=== PATIENT | male | born 1975 | race Hispanic/Latino ===

== ENCOUNTER 2018-06-15 10:44 | Emergency (ER) | payer BC ==
[2018-06-15] MEDS ORDERED: Lidocaine 1%/Epinephrine 1:100000 30 ml vial IJ STA (11:05)
[2018-06-15] MEDS ORDERED: TDAP Vaccine 0.5 mL Syr IM ONE (11:05)
[2018-06-15 11:07] VITALS: TEMP 98.6
--- NOTE | 2018-06-15 11:14 | ED PDOC ---
Arrival/HPI <Tucker Rosario - Last Filed: 06/15/18 12:02> - History of Present Illness Time/Duration: Prior to Arrival Symptom Onset: Sudden Context: Work <Tahir Blair - Last Filed: 06/15/18 12:06> - General Chief Complaint: Abnormal Skin Integrity Time Seen by Provider: 06/15/18 11:03 - History of Present Illness Narrative History of Present Illness (Text): 06/15/18 11:11 Patient is a 42 year old male with no PMH who presents to ED with a 1.5 cm superficial laceration on the left side of his chin. 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 (Tahir Blair) Past Medical History - Provider Review Nursing Documentation Reviewed: Yes - Travel History Have you recently traveled outside [place] w/in the past 3 mons?: No - Psychiatric Hx Substance Use: No <Tahir Blair - Last Filed: 06/15/18 12:06> Family/Social History - Physician Review Nursing Documentation Reviewed: Yes Family/Social History: No Known Family HX Smoking Status: Never Smoked Hx Alcohol Use: Yes Frequency of alcohol use: Socially Hx Substance Use: No <Tahir Blair - Last Filed: 06/15/18 12:06> Allergies/Home Meds <Tucker Rosario - Last Filed: 06/15/18 12:02> <Tahir Blair - Last Filed: 06/15/18 12:06> Allergies/Adverse Reactions: Allergies No Known Allergies Allergy (Verified 06/15/18 10:46) Home Medications: Home Meds Medication Instructions Recorded Confirmed No Known Home Med 06/15/18 06/15/18 Review of Systems - Physician Review All systems were reviewed & negative as marked: Yes - Review of Systems Constitutional: absent: Fatigue, Fevers Eyes: absent: Vision Changes ENT: absent: Sore Throat, Rhinorrhea Respiratory: absent: SOB, Cough Cardiovascular: absent: Chest Pain Gastrointestinal: absent: Abdominal Pain, Nausea, Vomiting Genitourinary Male: absent: Dysuria Musculoskeletal: absent: Arthralgias Skin: absent: Rash Neurological: absent: Headache, Dizziness Endocrine: absent: Diaphoresis Hemo/Lymphatic: absent: Adenopathy Psychiatric: absent: Anxiety, Depression <Tahir Blair - Last Filed: 06/15/18 12:06> Physical Exam Vital Signs Reviewed: Yes Temperature: Afebrile Blood Pressure: Hypertensive Pulse: Tachycardic Respiratory Rate: Normal Appearance: Positive for: Non-Toxic, Comfortable Pain Distress: Mild Mental Status: Positive for: Alert and Oriented X 3 - Systems Exam Head: Present: Atraumatic, Normocephalic Pupils: Present: PERRL Extroacular Muscles: Present: EOMI Conjunctiva: Present: Normal Ears: Present: Normal Mouth: Present: Moist Mucous Membranes Neck: Present: Normal Range of Motion. No: JVD Respiratory/Chest: Present: Clear to Auscultation. No: Wheezes, Rales, Rhonchi Cardiovascular: Present: Normal S1, S2, Tachycardic. No: Murmurs, Rub, Gallop Abdomen: No: Tenderness, Rebound, Guarding Upper Extremity: Present: Normal Inspection. No: Cyanosis Lower Extremity: Present: Normal Inspection. No: Edema Neurological: Present: Speech Normal Skin: Present: Warm, Dry, Other (1.5cm superficial laceration on left lower chin ) Psychiatric: Present: Alert, Oriented x 3 <Tahir Blair - Last Filed: 06/15/18 12:06> Vital Signs Temp Pulse Resp BP Pulse Ox 06/15/18 11:59 98.6 F 109 H 20 166/100 H 98 06/15/18 11:14 131 H 20 169/102 H 97 06/15/18 10:44 98.6 F 128 H 18 164/94 H 100 Medical Decision Making <Tucker Rosario - Last Filed: 06/15/18 12:02> - EKG Interpretation Interpreted by ED Physician: Yes Comparison: No previous EKG avail. <Tahir Blair - Last Filed: 06/15/18 12:06> ED Course and Treatment: 06/15/18 11:53 -4 stitches were used for facial laceration -Patient noted to be tachycardic and hypertensive -Patient states he gets nervous in hospital environments -Encouraged follow up with PMD -Will return in 5 days for suture removal (Tahir Blair) - EKG Interpretation EKG Interpretation (Text): 06/15/18 11:[address] without [address] or T wave changes. EKG done after patient was found to be tachycardic. (Tahir Blair) - Medication Orders Current Medication Orders: Discontinued Medications Lidocaine/Epinephrine (Lidocaine 1%/Epinephrine 1:[id number] 30 Ml) 10 ml IJ STAT STA Stop: 06/15/18 11:06 Last Admin: 06/15/18 11:19 Dose: 10 ml Tetanus/Reduced Diphtheria/Acell Pertussis (Boostrix Vaccine Inj) 0.5 ml IM .ONCE ONE Stop: 06/15/18 11:06 Last Admin: 06/15/18 11:18 Dose: 0.5 ml MAR Immunization Data Document 06/15/18 11:18 SRE (Rec: 06/15/18 11:19 SRE [id number]) Immunization Data Vaccine Information Sheet Given Yes Immunization Registry Document 06/15/18 11:18 SRE (Rec: 06/15/18 11:19 SRE [id number]) Immunization Registry Consent Date 06/15/18 Procedure: Wound Repair - Time Performed Time Performed: 11:30 - Time Out Time Out: Patient ID confirmed, Sterile procedures obs. - Consent Obtained Consent obtained: Written - Performed by Performed by: Mid-level Provider (Performed by resident physician with attending supervision) - Indications Indication(s):: Laceration - Location Location:: Left, Chin Shape:: Linear Depth:: Epidermis - Anesthetic Technique Local/Regional Anesthetic:: Lidocaine 1% w/epi - Debris Debris:: None - Irrigated Irrigated with ml of normal saline: 200 - Complexity Complexity:: Simple (one layer) - Wound repair method Sutures:: # (4), Type (6-0 ethilon) - Patient tolerated procedure Patient Tolerated Procedure:: Well <Tahir Blair - Last Filed: 06/15/18 12:06> - Scribe Statement The provider has reviewed the documentation as recorded by the Scribe <Tucker Rosario - Last Filed: 06/15/18 12:02> <Tahir Blair - Last Filed: 06/15/18 12:06> - Scribe Statement Chidi Gonzalez Patient Seen With Resident: In agreement with resident note. Patient was seen and evaluated with resident, came up with plan and treatment together. (Tucker Rosario) Disposition/Present on Arrival <Tucker Rosario - Last Filed: 06/15/18 12:02> - Present on Arrival Any Indicators Present on Arrival: No History of DVT/PE: No History of Uncontrolled Diabetes: No Urinary Catheter: No History of Decub. Ulcer: No History Surgical Site Infection Following: None - Disposition Have Diagnosis and Disposition been Completed?: Yes Disposition Time: 11:52 Patient Plan: Discharge <Tahir Blair - Last Filed: 06/15/18 12:06> - Disposition Diagnosis: Facial laceration Disposition: HOME/ ROUTINE Patient Problems: Current Active Problems Problem Status Onset Facial laceration Acute Condition: GOOD Discharge Instructions (ExitCare): Laceration Repair With Stitches (DC) Referrals: PCP,NO [Primary Care Provider] - Follow up with primary Forms: [employer] [facility] ([place]), WORK NOTE
[2018-06-15 11:15] VITALS: RESP 20
[2018-06-15 12:00] VITALS: BP 166/100; PULSE 109; O2SAT 98
--- NOTE | 2018-06-15 17:38 | CARD ---
APPROVED REPORT Date of service: 06/15/2018 EKG Measurement Heart [id number] <Conclusion> Sinus tachycardia Otherwise normal ECG
== END 2018-06-15 11:59 | disposition home or self-care (01) ==
LOC: ED 10:44
DX: S01.81XA Laceration without foreign body of other part of head, initial encounter (principal); W20.8XXA Other cause of strike by thrown, projected or falling object, initial encounter